=== PATIENT | male | born 1955 | race Caucasian/White ===

== ENCOUNTER 2023-01-02 10:52 | Day surgery (SDC) | payer MEDICARE, OTHER, SELFPAY ==
[2023-01-02] MEDS: LACTATED RINGERS 1,000 ML 42 ML IV (11:15)
--- NOTE | 2023-01-02 11:23 | PM.HP.1 ---
History of Present Illness History of Present Illness Date Patient Seen: 01/02/23 Time Patient Seen: 11:24 Chief complaint: Screening Colonoscopy Narrative: I reviewed the recent office note by . No changes. He indicates his last colonoscopy which was negative was about 12 years ago. He has an AICD and if we use cautery the recommendation has been to apply a magnet. [facility] Social History Smoking Status: Never smoker Meds Home Medications and Allergies Home Medications Medication Instructions Recorded Confirmed Type simvastatin 10 mg tablet 10 mg PO DAILY 12/24/20 12/24/20 History Allergies Allergy/AdvReac Type Severity Reaction Status Date / Time No Known Drug Allergies Allergy Verified 01/02/23 11:22 Review of Systems Review of Systems ROS: Yes All systems reviewed with the patient and are negative except as otherwise documented Exam Const General: cooperative HENMT Head: normal to inspection Eyes General: appearance normal, both eyes and all related structures Neck Neck: normal visual inspection Chest Chest: normal inspection of the chest Resp Effort & Inspection: normal respiratory effort Cardio Rate: regular rate GI Inspection: normal to inspection Skin General: no rashes or lesions noted Neuro General: patient alert and patient awake Extrem General: normal to inspection and no pedal edema Psych Appearance: grossly normal Assessment & Plan Assessment & Plan narrative: 67-year-old male indicated for colon cancer screening. Colonoscopy is pursued today.
--- NOTE | 2023-01-02 11:25 | PM.PREOP ---
Pre-operative Note Interval Note History & Physical reviewed/Exam performed by Physician: Yes Changes to H&P: No ASA Class (for procedural sedation): II
[2023-01-02 11:32] VITALS: BMI 27.0
[2023-01-02 11:41] VITALS: BP 118/71; PULSE 82; RESP 17; TEMP 36.4; O2SAT 99
--- NOTE | 2023-01-02 12:47 | PM.OP.COLON ---
Operative Date/Time/Diagnoses Date of procedure: 01/02/23 Time of procedure: 12:47 Pre-op diagnosis: Colon cancer screening Post-op diagnosis: same Procedure & Clinicians Study performed: Colonoscopy Same procedure as scheduled: Yes Indications: Colon cancer screening Surgeon: Suman Scott Procedure Notes SCOAP/Timeout: Done Procedure in detail: After the risks and benefits were explained, written and verbal informed consent was obtained. The patient was brought into the procedure room and placed into the left lateral decubitus position. Please see anesthesia notes for sedation details. Digital rectal examination was accomplished. The scope was introduced into the patient and advanced under direct visualization to the cecum as identified by the appendiceal orifice and ileocecal valve. The scope was slowly withdrawn to carefully examine the mucosa for any defects or lesions. Comprehensive imaging was accomplished throughout the rectum including the dentate line. The colon was decompressed, the scope was then removed from the patient who tolerated the procedure well. Pediatric colonoscope Bowel prep fair; with copious irrigation and suction this was rendered adequate. Scope withdrawal time: 8 minutes Sedation minutes: 21 Specimen(s): none sent Complications: none Impression: No significant polyps mass lesions or inflammatory features identified throughout. Grade 2-3 internal nonbleeding nonthrombosed hemorrhoids were noted. Endoscopic diagnosis 1. Grade 2-3 hemorrhoids 2. Otherwise visually unremarkable colonoscopy Post-procedure Plan for aftercare: Repeat colonoscopy 10 years; sooner should symptoms warrant an earlier exam. Disposition: PACU
[2023-01-02 12:49] VITALS: BP 100/72; PULSE 68; RESP 16; TEMP 36.3; O2SAT 97
[2023-01-02 12:54] VITALS: BP 97/70; PULSE 63; RESP 13; O2SAT 97
[2023-01-02 12:58] VITALS: BP 105/74; PULSE 74; RESP 16; TEMP 36.9; O2SAT 98
[2023-01-02 13:01] VITALS: BP 107/77; PULSE 67; RESP 19; O2SAT 98
== END 2023-01-02 13:37 | disposition home or self-care (01) ==
PROVIDERS: Family Provider Family Medicine; PCP Internal Medicine; Referring Provider Internal Medicine Gastroenterology; Visit Provider Internal Medicine Gastroenterology
PROC: 0DJD8ZZ Inspection of Lower Intestinal Tract, Via Natural or Artificial Opening Endoscopic (ICD-10-PCS; CPT 45378; principal; 2023-01-02 12:30)
DX: Z12.11 Encounter for screening for malignant neoplasm of colon (principal); K64.1 Second degree hemorrhoids
CPT/HCPCS: G0121; J2704

== ENCOUNTER → 2023-03-13 07:31 | Outpatient (CLI) | payer MEDICARE, OTHER, SELFPAY ==
--- NOTE | 2023-03-13 07:34 | DI.NM.S_ITS ---
PROCEDURE: NM SONYA PERF SPECT REST & STR Rest and exercise myocardial perfusion SPECT with gated imaging and ejection fraction RADIOPHARMACEUTICAL: 12.5 mCi Tc-99m sestamibi IV at rest and 25.6 mCi Tc-99m sestamibi IV at peak exercise. A one day-protocol was performed. INDICATIONS: CARDIOMYOPATHY/VTACH/DIZZINESS/JAW PAIN TECHNIQUE: Radiopharmaceutical was injected at peak stress test, and also at rest. SPECT images were obtained. SPECT myocardial perfusion images were displayed in short axis, horizontal long axis, and vertical long axis views. Gated images were reviewed using PredictAd software. COMPARISON: None. CARDIAC STRESS: A standard Andres treadmill exercise tolerance test was performed by the patient under the supervision of an attending staff. The patient exercised for 9 minutes and 28 seconds; functional aerobic impairment (HECTOR) is -27%. Hemodynamic data: There is normal blood pressure and heart rate response to exercise stress. Patient achieved 108% of maximum predicted heart rate at peak exercise. Symptoms: Patient denied chest pain during exercise. EKG: No diagnostic EKG changes of ischemia; occasional PVCs present. FINDINGS: Raw data: There is good myocardial labeling by radiotracer. No significant motion artifacts. Ibmq-tf-leopm ratio is 0.21 (normal is less than 0.38 for sestamibi tracer, and less than 0.50 for thallium tracer). Left ventricle function: Gated images demonstrate normal left ventricle wall thickening. No segmental wall motion abnormality. No transient ischemic dilation; TID is 0.74 (normal less than 1.3). The left ventricle resting end-diastolic volume is 96mL. Left ventricle stress ejection fraction is 85%; normal values are above 45%. Myocardial perfusion: There is a severe fixed distal inferior wall defect that is consistent with prior infarction and no significant ischemia (SSS 4). No other perfusion defects noted. IMPRESSION: Abnormal treadmill nuclear stress test consistent with prior infarction in the distal inferior wall. No inducible ischemia. 1) There is a severe fixed distal inferior wall defect that is consistent with prior infarction and no significant ischemia (SSS 4). No other perfusion defects noted. 2) Normal left ventricular size, wall motion, and systolic function (EF post stress 85%). 3) No ST changes during exercise or recovery. 4) No angina during the study 5) Good exercise capacity (10.1METs, HECTOR -27%). Target heart rate achieved. Appropriate BP response to exercise. 6) No prior nuclear stress test available for comparison. Dictated by: Ayde Barnett MD on 03/13/2023 at 16:58 Approved by: Ayde Barnett MD on 03/13/2023 at 17:03
--- NOTE | 2023-03-13 08:23 | DI.ECHO.S_ITS ---
[facility]---------+ [facility] +---------+ : : [id number] : [place] : : : : [id number] : : : : Phone: [phone]+ Echocardiogram Report + + :Name: TYLER PANCHAL Study Date: 03/13/2023 Height: 68 in : :[facility] ReadingLocation: Weight: 182 lb : : Gender: Male BSA: 2.0 m2 : :: 1955 Age: 67 yrs BP: 122/80 mmHg: :Reason For Study: CARDIOMYOPATHY : :Ordering Physician: BENSON, : :LANA Performed By: Pattie Rico : :Referring: LANA KNOWLES : + + Interpretation Summary The left ventricle is normal in size. The ejection fraction is estimated to be 50-55%. Compared to the prior exam, the left ventricular function is improved mildly. Previous LVEF 45 to 50%. 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 In comparison to previous study mid anteroseptum and distal inferior septum wall motion abnormalities improved. The right ventricle is mildly dilated. The right ventricular systolic function is normal. There is a pacemaker lead in the right ventricle. There is mild mitral regurgitation. Compared to the prior echo study, there has been no change in the severity of mitral regurgitation. There is mild tricuspid regurgitation. Compared to the prior echo exam, there has been no change in TR severity. Mild atherosclerotic plaque(s) in the aortic arch. Procedure: A two-dimensional transthoracic echocardiogram with color flow and Doppler was performed. The study quality was technically adequate. Comparison is made with the echocardiogram of 09/06/2022. The patient has a paced rhythm. The heart rate ranged between 60-64 bpm during the study. Left Ventricle: The left ventricle is normal in size. Proximal septal thickening is noted. There is no thrombus. The ejection fraction is estimated to be 50-55%. Compared to the prior exam, the left ventricular function is improved. 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 In comparison to previous study mid anteroseptum and distal inferior septum wall motion abnormalities improved. No significant diastolic dysfunction. Right Ventricle: The right ventricle is mildly dilated. There is a pacemaker lead in the right ventricle. The right ventricular systolic function is normal. Atria: The left atrial size is normal. There has been no significant change since the previous study. Right atrial size is normal. There is no Doppler evidence for an interatrial shunt. Mitral Valve: The mitral valve leaflets appear borderline thickened, but open well. There is mild mitral regurgitation. Compared to the prior echo study, there has been no change in the severity of mitral regurgitation. Aortic Valve: There is mild aortic valve sclerosis. The aortic valve is trileaflet. There is no aortic valve stenosis. No aortic regurgitation is present. Tricuspid Valve: The tricuspid valve is normal. There is mild tricuspid regurgitation. Pulmonary artery pressures cannot be estimated because of the lack of a measurable TR jet velocity. Compared to the prior echo exam, there has been no change in TR severity. Pulmonic Valve: The pulmonic valve leaflets are thin and pliable; valve motion is normal. There is trace pulmonic regurgitation. Great Vessels: The aortic root is normal size. The dimensions of the ascending aorta are normal. Mild atherosclerotic plaque(s) in the aortic arch. The inferior vena cava was not visualized. Pericardium/ Pleura There is no pericardial effusion. There is no pleural effusion. MMode/2D Measurements & Calculations LVIDd: 4.1 cm LVOT diam: 2.2 cm LVIDs: 3.2 cm Ao root diam: 3.8 cm FS: 22.9 % asc Aorta Diam: 3.5 cm IVSd: 0.62 cm Ao Arch Diam (Prox Trans): 2.4 cm LVPWd: 0.77 cm LV isaac. diameter/BSA (cm/m^2): 2.1 LV sys. diameter/BSA (cm/m^2): 1.6 LA A2 area: 18.7 cm2 RA long axis: 5.0 cm LA A4 area: 17.7 cm2 RA area: 16.3 cm2 LA length (vol): 5.2 cm RA vol: 44.8 ml LA vol: 54.4 ml RA : 22.8 ml/m2 LA vol index: 27.7 ml/m2 RVD1 (basal): 4.7 cm TAPSE: 1.7 cm Doppler Measurements & Calculations Ao V2 max: 118.4 cm/sec LVOT Max Vickey: 105.6 cm/sec Ao V2 mean: 87.1 cm/sec LV V1 max P.5 mmHg Ao max P.6 mmHg LV V1 VTI: 23.9 cm Ao mean P.3 mmHg SAVANA(I,D): 3.4 cm2 Ao V2 VTI: 27.9 cm SAVANA(V,D): 3.5 cm2 sev ratio: 0.86 SAVANA indexed to BSA (cm^2/m^2): 1.7 MV E max vickey: 66.9 cm/sec PA V2 max: 102.5 cm/sec MV A max vickey: 58.7 cm/sec PA V2 mean: 71.4 cm/sec MV E/A: 1.1 PA mean P.3 mmHg Med Peak E' Vickey: 7.4 cm/sec PA pr(Accel): 20.8 mmHg E/E' med: 9.1 Lat Peak E' Vickey: 12.1 cm/sec E/E' lat: 5.5 E/e' average: 7.3 MV dec time: 0.22 sec SV(LVOT): 94.8 ml Reading Physician:01:57 PM
== END ==
PROVIDERS: Family Provider Family Medicine; PCP Nurse Practitioner; Referring Provider Internal Medicine Cardiovascular Disease; Visit Provider Internal Medicine Cardiovascular Disease
DX: I25.5 Ischemic cardiomyopathy (principal); I25.2 Old myocardial infarction; I47.20 Ventricular tachycardia, unspecified; R42 Dizziness and giddiness; R94.39 Abnormal result of other cardiovascular function study; R68.84 Jaw pain
CPT/HCPCS: 78452; 93017; 93306; A9502